=== PATIENT | female | born 1970 | race Caucasian/White ===

== ENCOUNTER 2022-03-20 10:29 | Inpatient (IN) ==
[2022-03-20] MEDS ORDERED: *HR* Propofol 200 MG/20 ML VIAL IVP ONE ×2 (10:38→12:13)
[2022-03-20] MEDS ORDERED: Lidocaine -MPF 2% 5 ML VIAL ONE ×3 (10:38→12:15)
[2022-03-20] MEDS ORDERED: *HR* Rocuronium Bromide 50 MG/5 ML VIAL ONE (10:38)
[2022-03-20] MEDS ORDERED: Ondansetron 4 MG/2 ML VIAL ONE ×2 (10:38→12:15)
[2022-03-20] MEDS ORDERED: *HR* Succinylcholine 200 MG/10 ML VIAL IVP ONE ×2 (10:38→12:15)
[2022-03-20] MEDS ORDERED: *HR* Midazolam HCl 2 MG/2 ML VIAL ONE ×2 (10:39→12:13)
[2022-03-20] MEDS ORDERED: *HR* FentaNYL (PF) 100 MCG/2 ML VIAL ONE ×2 (10:39→12:12)
[2022-03-20] MEDS ORDERED: CeFAZolin Syr 2,000MG/20 ML 2,000 MG/20 ML SYRINGE IVPB ONE (10:42)
[2022-03-20] MEDS ORDERED: Ringers Solution, Lactated 1,000 ML IVC SCH ×2 (10:45→16:29)
[2022-03-20] MEDS ORDERED: Acetaminophen IV 1,000 MG/100 ML BAG IVPB PRN (11:04)
[2022-03-20] MEDS ORDERED: *HR* FentaNYL (PF) 100 MCG/2 ML VIAL IVP PRN (11:04)
[2022-03-20] MEDS ORDERED: *HR* OxyCODONE Immed Rel 5 MG TABLET PO PRN (11:04)
[2022-03-20] MEDS ORDERED: *HR* Labetalol 20 MG/4 ML SYRINGE IVP PRN (11:04)
[2022-03-20] MEDS ORDERED: Ondansetron 4 MG/2 ML VIAL IVP PRN ×2 (11:04→16:29)
[2022-03-20] MEDS ORDERED: Ipratropium Neb 0.5 MG NEBULIZER IH PRN (11:04)
[2022-03-20] MEDS ORDERED: Albuterol 2.5 MG/3 ML NEBULIZER IH PRN (11:04)
[2022-03-20] MEDS ORDERED: Acetaminophen IV 1,000 MG/100 ML BAG IVPB ONE (13:00)
[2022-03-20] MEDS ORDERED: Sugammadex Sodium 200 MG/2 ML VIAL IV ONE (13:03)
[2022-03-20] MEDS ORDERED: *HR* HYDROMORPHONE 2 MG/ML VIAL ONE (13:27)
[2022-03-20] MEDS ORDERED: Pregabalin 75 MG CAPSULE PO ONE (14:00)
[2022-03-20] MEDS ORDERED: tiZANidine 4 MG TABLET PO SCH (14:00)
[2022-03-20] MEDS: *HR* HYDROmorphone PF 0.5 MG/0.5 ML SYRINGE IVP PRN ×2 (14:21→14:38)
[2022-03-20] MEDS ORDERED: Ketorolac 30 MG/ML VIAL IVP ONE (15:23)
[2022-03-20] MEDS ORDERED: Naloxone 0.4 MG/ML INJ IVP PRN (16:29)
[2022-03-20] MEDS ORDERED: *HR* HYDROcodone/Acet 5/325 mg TABLET PO PRN (16:29)
[2022-03-20] MEDS ORDERED: Acetaminophen 325 MG TABLET PO PRN (16:29)
[2022-03-20] MEDS ORDERED: DICYCLOMINE HCL 20 MG PO SCH (17:00)
[2022-03-20] MEDS ORDERED: rOPINIRole 1 MG TABLET PO SCH (21:00)
[2022-03-20] MEDS ORDERED: NON-FORMULARY MEDICATION 1 EACH EACH (Duloxetine Hcl [Cymbalta] 60 MG Capsule.Dr) PO SCH (21:00)
[2022-03-20] MEDS: CeFAZolin 2 GM/120 ML BAG IVPB SCH (21:28)
[2022-03-20] MEDS: Diclofenac Sodium (DR) 50 MG TABLET.DR PO PRN (21:34)
[2022-03-21] MEDS: *HR* OxyCODONE Immed Rel 5 MG TABLET PO PRN ×3 (01:44→14:43)
[2022-03-21] MEDS: CeFAZolin 2 GM/120 ML BAG IVPB SCH (03:35)
[2022-03-21] MEDS ORDERED: lisinopriL 10 MG TABLET PO SCH (09:00)
[2022-03-21] MEDS ORDERED: BuPROPion XL (24 HR) 150 MG TABLET PO SCH (09:00)
[2022-03-21] MEDS ORDERED: estradioL 0.5 MG TABLET PO SCH (09:00)
[2022-03-21] MEDS ORDERED: ARIPiprazole 2 MG TABLET PO SCH (09:00)
[2022-03-21 10:26] VITALS: BP 120/63; PULSE 90; TEMP 98; O2SAT 98
[2022-03-21] MEDS: Diclofenac Sodium (DR) 50 MG TABLET.DR PO PRN (11:45)
== END 2022-03-21 17:03 | disposition home or self-care (01) | DRG 320 ==
LOC: SDCAOSI 10:29 → 4WAOSI 16:02
PROVIDERS: ADMIT Student in an Organized Health Care Education/Training Program; ATTEND Student in an Organized Health Care Education/Training Program